=== PATIENT | male | born 1985 | race Caucasian/White ===

== ENCOUNTER 2017-06-13 08:53 | Emergency (ER) | payer OTHER ==
[~2017-06-13] VITALS: Ht 182.9 cm; Wt 87.6 kg
[2017-06-13 09:40] LABS: HEMATOCRIT 46.1 % (38.0-50.0); HEMOGLOBIN 16.2 G/DL (12.5-16.6); MCH 32.2 PG (29.0-34.0); MCHC 35.1 G/DL (30.0-36.0); MCV 91.7 FL (86-99); RBC DIS.WIDTH-CV 12.7 % (11.8-14.6); RBC DIS.WIDTH-SD 42.8 % (39-53); RED BLOOD COUNT 5.03 M/uL (4.00-5.50); WHITE BLOOD COUNT 12.3 K/uL (4.1-10.2)
[2017-06-13 09:51] LABS: CHLORIDE 101 mEq/L (99-109); POTASSIUM 3.5 mEq/L (3.7-5.4); SODIUM 139 mEq/L (136-147)
[2017-06-13 09:53] LABS: GLUCOSE 101 mg/dL (70-99)
[2017-06-13 09:56] LABS: SERUM ETHYL ALCOHOL < 10 mg/dL
[2017-06-13 09:57] LABS: CREATININE 1.1 mg/dL (0.6-1.3)
[2017-06-13 09:58] LABS: UREA NITROGEN (BUN) 11 mg/dL (9-23)
[2017-06-13 10:02] LABS: GFR ESTIMATE (CALCULATED) > 59 mL/min/ (58.99-99999)
[2017-06-13 10:33] LABS: PLAT.SUFFICIENCY ADEQUATE; PLATELET COUNT 295 K/uL (156-360)
[2017-06-13 11:38] LABS: BENZODIAZEPINES, URINE SCREEN Negative (200 ng/mL)
[2017-06-13 13:59] VITALS: BP 152/98
== END 2017-06-13 14:00 | disposition home or self-care (01) ==
LOC: EME 08:53
PROVIDERS: Emergency Medicine Emergency Medical Services
DX: F32.9 Major depressive disorder, single episode, unspecified (principal); F43.9 Reaction to severe stress, unspecified; R45.851 Suicidal ideations; J45.909 Unspecified asthma, uncomplicated; F17.200 Nicotine dependence, unspecified, uncomplicated
CPT/HCPCS: 80048; 80306 90; 85027; 90837; 99281; 99284; G0480